=== PATIENT | male | born 1970 | race Hispanic/Latino ===

== ENCOUNTER 2016-11-30 07:28 | Day surgery (SDC) | payer OTHER ==
[2016-11-30 07:49] VITALS: BMI 22.6
[2016-11-30] MEDS ORDERED: Propofol 10 mg/ml Inj (20 ML) ONE (10:02)
[2016-11-30] MEDS ORDERED: Lactated Ringer's 500 ML IV SCH (10:15)
[2016-11-30 10:36] VITALS: TEMP 97.8
[2016-11-30 11:14] VITALS: O2SAT 99
[2016-11-30 11:32] VITALS: BP 101/66; PULSE 62; RESP 18
== END 2016-11-30 11:25 | disposition home or self-care (01) ==
LOC: C.ENDO 07:28
PROVIDERS: ATTEND Internal Medicine Gastroenterology
DX: K29.70 Gastritis, unspecified, without bleeding (principal); K31.7 Polyp of stomach and duodenum; K29.80 Duodenitis without bleeding; K20.9 Esophagitis, unspecified
CPT/HCPCS: 43239; 88305; 88312; 88313; 88342; J2704; J7120

== ENCOUNTER 2017-03-15 06:30 | Day surgery (SDC) | payer OTHER ==
[2017-03-15 06:49] VITALS: BMI 24.3
--- NOTE | 2017-03-15 08:38 | CP.SDSHP ---
Same Day Surgery H & P - History Proposed Procedure: colonoscopy Pre-Op Diagnosis: rectal bleeding - Allergies Allergies: Allergies No Known Allergies Allergy (Verified 06/01/16 07:43) - Physical Exam General Appearance: NAD Vital Signs: Vital Signs 03/15/17 06:49 Temperature 96.9 F L Pulse Rate 80 Respiratory 20 Rate Blood Pressure 116/68 O2 Sat by Pulse 98 Oximetry Mental Status: Alert & Oriented x3 Neuro: WNL Heart: WNL Lungs: WNL GI: WNL - {Optional Preform as Required} Abdomen: WNL - Impression Pt. Evaluated Today:Candidate for Anesthesia & Procedure: Yes - Date & Time Date: 03/15/17 Time: 08:38 Short Stay Discharge - Short Stay Discharge Admitting Diagnosis/Reason for Visit: HEMORRHAGE OF ANUS AND RECTUM Disposition: HOME/ ROUTINE
[2017-03-15] MEDS ORDERED: Propofol 10 mg/ml Inj (20 ML) ONE (08:40)
[2017-03-15] MEDS ORDERED: Lactated Ringer's 1,000 ML IV ONE (08:40)
[2017-03-15 09:24] VITALS: TEMP 97.8; O2SAT 100
[2017-03-15 09:55] VITALS: RESP 12
[2017-03-15 09:57] VITALS: BP 106/60; PULSE 70
== END 2017-03-15 10:45 | disposition home or self-care (01) ==
LOC: C.ENDO 06:30
PROVIDERS: ATTEND Internal Medicine Gastroenterology
DX: K64.2 Third degree hemorrhoids (principal); D12.2 Benign neoplasm of ascending colon
CPT/HCPCS: 45380; 88305; J2704; J7120